=== PATIENT | male | born 1935 | race Two or more races ===

== ENCOUNTER 2023-06-05 23:02 | Inpatient (IN) | payer MEDICARE, OTHER ==
[~2023-06-05] VITALS: Ht 182.9 cm; Wt 75.8 kg
[2023-06-05 23:57] LABS: Basophils # (auto) 0 10 ^3/uL (0-0.2); Basophils % (auto) 0.3 % (0.0-2.0); Eosinophils # (auto) 0.1 10 ^3/uL (0-0.8); Eosinophils % (auto) 0.9 % (0.0-7.0); Hematocrit 35.9 % (41.0-53.0); Hemoglobin 11.7 g/dL (13.5-17.5); Lymphocytes # (auto) 1.2 10 ^3/uL (0.4-5.4); Lymphocytes % (auto) 12.5 % (10.0-50.0); Mean Corpuscular Hgb Conc. 32.6 g/dL (32.0-36.0); Mean Corpuscular Volume 88.9 fL (80.0-100.0); Monocytes # (auto) 0.7 10 ^3/uL (0-1.3); Monocytes % (auto) 6.9 % (0.0-12.0); Neutrophils # (auto) 7.8 10 ^3/uL (1.6-8.6); Neutrophils % (auto) 79.4 % (37.0-80.0); Red Blood Cells 4.04 10^6/uL (4.5-5.90); Red Cell Distribution Width 16.4 % (11.8-14.3); White Blood Cell 9.8 10^3/uL (4.4-10.8)
[2023-06-06] VITALS: PULSE 94; RESP 11; O2SAT 99
[2023-06-06 00:13] LABS: Albumin 3.3 g/dL (3.2-4.8); Alkaline Phosphatase 570 U/L (46-116); Anion Gap 5 (5-15); Aspartate Aminotransferase 15 U/L (13-40); BUN/Creatinine Ratio 15.5 (10.0-20.0); Bilirubin, Total 1.2 mg/dL (0.2-1.0); Blood Urea Nitrogen 11 mg/dL (9-23); Calcium 8.4 mg/dL (8.7-10.4); Carbon Dioxide 30 mmol/L (20-30); Chloride 101 mmol/L (98-107); Glucose 97 mg/dL (74-106); Lipase 35 U/L (12-53); Potassium 3.8 mmol/L (3.5-5.1); Sodium 136 mmol/L (136-145); Total Protein 6.4 g/dL (5.7-8.2)
[2023-06-06 00:27] LABS: Alanine Aminotransferase < 9 U/L (7-40)
[2023-06-06 00:37] LABS: Urine Epithelial Cast None Seen /hpf (<5)
[2023-06-06 01:04] LABS: Urine Bacteria NONE SEEN /hpf (None Seen); Urine Hyaline Cast MANY /lpf (0 - 2); Urine Mucus FEW (None Seen); Urine Sperm PRESENT /hpf (None Seen); Urine WBC 49 /hpf (0 - 3); Urine WBC Clumps PRESENT /hpf (None Seen)
[2023-06-06 01:07] LABS: Urine Clarity CLOUDY (Clear); Urine Color RED (Yellow)
[2023-06-06 01:08] LABS: Urine Blood 3+ /uL (Negative); Urine Protein, UAD 2+ (Negative); Urine Urobilinogen Normal (Negative); Urine pH 6.5 (5.0-8.0)
[2023-06-06 01:13] LABS: Urine Specific Gravity 1.015 (1.001-1.035)
[2023-06-06] MEDS ORDERED: MAALOX PLUS or MAALOX 30 ML PO PRN (01:30)
[2023-06-06] MEDS: PIPERACILLIN-TAZOB 3.375GM 100 ML IV ONE (02:06)
[2023-06-06] MEDS: SODIUM CHLORIDE 0.9% 1,000 ML IV SCH (02:44)
[2023-06-06] MEDS ORDERED: DEXTROSE (50%) 50ML SYRG IV PRN (03:45)
[2023-06-06] MEDS: HYDROcodone-ACET 5/325MG TAB PO PRN (04:27)
[2023-06-06 06:29] LABS: Basophils # (auto) 0 10 ^3/uL (0-0.2); Basophils % (auto) 0.3 % (0.0-2.0); Eosinophils # (auto) 0.1 10 ^3/uL (0-0.8); Eosinophils % (auto) 0.6 % (0.0-7.0); Hematocrit 35.1 % (41.0-53.0); Hemoglobin 11.4 g/dL (13.5-17.5); Lymphocytes # (auto) 1.1 10 ^3/uL (0.4-5.4); Lymphocytes % (auto) 11.8 % (10.0-50.0); Mean Corpuscular Hemoglobin 28.7 pg (28.0-32.0); Mean Corpuscular Hgb Conc. 32.5 g/dL (32.0-36.0); Mean Corpuscular Volume 88.3 fL (80.0-100.0); Monocytes # (auto) 0.5 10 ^3/uL (0-1.3); Monocytes % (auto) 4.9 % (0.0-12.0); Neutrophils # (auto) 7.6 10 ^3/uL (1.6-8.6); Neutrophils % (auto) 82.4 % (37.0-80.0); Red Blood Cells 3.97 10^6/uL (4.5-5.90); Red Cell Distribution Width 16.5 % (11.8-14.3); White Blood Cell 9.3 10^3/uL (4.4-10.8)
[2023-06-06] MEDS: ACCU-CHEK COMFORT CURVE STRIP VI SCH (06:35)
[2023-06-06] MEDS: InsuLIN REG 1unit/0.01ml Soln (100units/ml) SC SCH (06:36)
[2023-06-06 06:41] LABS: Anion Gap 10 (5-15); Carbon Dioxide 26 mmol/L (20-30); Chloride 101 mmol/L (98-107); Potassium 3.7 mmol/L (3.5-5.1); Sodium 137 mmol/L (136-145)
[2023-06-06 06:43] LABS: Calcium 8.4 mg/dL (8.7-10.4)
[2023-06-06 06:47] LABS: BUN/Creatinine Ratio 16.9 (10.0-20.0); Blood Urea Nitrogen 11 mg/dL (9-23); Glucose 101 mg/dL (74-106)
[2023-06-06 10:33] VITALS: PULSE 86; RESP 14; O2SAT 97
[2023-06-06] MEDS: cefTRIAXone 1GM/50ML D5W 50 ML IV ONE (14:38)
[2023-06-06 17:56] VITALS: BP 96/51; PULSE 96; RESP 14; O2SAT 92
[2023-06-06 20:00] VITALS: PULSE 97; RESP 16; O2SAT 100
[2023-06-06] MEDS: ACETAMINOPHEN 325 MG TAB PO PRN (21:46)
[2023-06-06 22:00] VITALS: BP 100/60; PULSE 97; RESP 16; TEMP 97.5; O2SAT 100
[2023-06-07] VITALS (7 sets, daily range): BP systolic 93–114; BP diastolic 49–63; PULSE 86–110; RESP 14–18; TEMP 96.6–97.6; O2SAT 93–100
[2023-06-07] MEDS: cefTRIAXone 1GM/50ML D5W 50 ML IV SCH (10:49)
[2023-06-08] VITALS (7 sets, daily range): BP systolic 100–107; BP diastolic 53–70; PULSE 84–101; RESP 14–19; TEMP 97.7–98.7; O2SAT 95–100
[2023-06-08] MEDS: DOCUSATE SOD 100 MG CAP PO PRN (09:22)
[2023-06-08] MEDS: IOHEXOL 300 MG/ML 100ML BOTTLE IJ ONE (10:19)
[2023-06-08] MEDS ORDERED: CLINIMIX PER PHARMACY 0 ML IV SCH (13:45)
[2023-06-08 16:48] LABS: Alkaline Phosphatase 501 U/L (46-116); Anion Gap 7 (5-15); Aspartate Aminotransferase 20 U/L (13-40); Blood Urea Nitrogen 12 mg/dL (9-23); Calcium 8.4 mg/dL (8.5-10.1); Carbon Dioxide 27 mmol/L (20-30); Chloride 104 mmol/L (98-107); Glucose 111 mg/dL (74-106); Sodium 138 mmol/L (136-145)
[2023-06-08 16:49] LABS: Bilirubin, Total 0.8 mg/dL (0.2-1.0); Total Protein 5.8 g/dL (5.7-8.2)
[2023-06-08 16:52] LABS: Magnesium 1.9 mg/dL (1.6-2.6)
[2023-06-08 16:53] LABS: Alanine Aminotransferase < 9 U/L (7-40)
[2023-06-08 16:54] LABS: Phosphorus 2.4 mg/dL (2.4-5.1)
[2023-06-08] MEDS: ACCU-CHEK COMFORT CURVE STRIP VI SCH (17:21)
[2023-06-08] MEDS: InsuLIN REG 1unit/0.01ml Soln (100units/ml) SC SCH (17:21)
[2023-06-08] MEDS ORDERED: DEXTROSE (50%) 50ML SYRG IV SCH (18:00)
[2023-06-08] MEDS: AMINO ACID INFUSION IN D10W 1,000 ML IV SCH (20:32)
[2023-06-09] VITALS (7 sets, daily range): BP systolic 94–108; BP diastolic 50–59; PULSE 80–98; RESP 17–19; TEMP 97.9–98.1; O2SAT 99–100
[2023-06-09 07:14] LABS: Albumin 2.9 g/dL (3.2-4.8); Alkaline Phosphatase 466 U/L (46-116); Anion Gap 7 (5-15); Aspartate Aminotransferase 16 U/L (13-40); BUN/Creatinine Ratio 20.8 (10.0-20.0); Blood Urea Nitrogen 11 mg/dL (9-23); Calcium 8.2 mg/dL (8.7-10.4); Carbon Dioxide 27 mmol/L (20-30); Chloride 104 mmol/L (98-107); Glucose 113 mg/dL (74-106); Magnesium 1.8 mg/dL (1.6-2.6); Potassium 3.6 mmol/L (3.5-5.1); Sodium 138 mmol/L (136-145)
[2023-06-09 07:15] LABS: Bilirubin, Total 0.8 mg/dL (0.2-1.0); Phosphorus 2.2 mg/dL (2.4-5.1); Total Protein 5.5 g/dL (5.7-8.2)
[2023-06-09 07:19] LABS: Alanine Aminotransferase < 9 U/L (7-40)
[2023-06-09 08:06] LABS: PSA Free 15.7 ng/mL; Prostate Specific Antigen 83.1 ng/mL (0.0-4.0)
[2023-06-09] MEDS: POTASSIUM PHOSPHATE 22 MEQ in SODIUM CHL 0.9% 100 ML IV ONE (13:20)
[2023-06-09] MEDS: LORazepam 2MG/ML-1ML VIAL IV ONE (14:32)
[2023-06-09] MEDS: MUPIROCIN 2% OINT 15gm or 22gm FOR MRSA NARES TOP SCH (22:22)
[2023-06-10] VITALS (7 sets, daily range): BP systolic 104–118; BP diastolic 57–73; PULSE 82–110; RESP 16–21; TEMP 97.7–98.6; O2SAT 90–99
[2023-06-10] MEDS: MORPHINE SULFATE INJ 2 MG/ml SYRG IV PRN (04:52)
[2023-06-10 06:08] LABS: Potassium 3.6 mmol/L (3.5-5.1)
[2023-06-10 06:09] LABS: Calcium 8.3 mg/dL (8.7-10.4)
[2023-06-10 06:15] LABS: Albumin 2.9 g/dL (3.2-4.8); Magnesium 1.6 mg/dL (1.6-2.6)
[2023-06-10 06:17] LABS: Phosphorus 2.1 mg/dL (2.4-5.1)
[2023-06-10] MEDS: ONDANSETRON HCL 4 MG/2 ML VIAL IV PRN (08:56)
[2023-06-10] MEDS: MAGNESIUM SULFATE 1GM/100ML 100 ML IV ONE (10:30)
[2023-06-10] MEDS ORDERED: POTASSIUM PHOSPHATE 22 MEQ in SODIUM CHL 0.9% 100 ML IV ONE (12:00)
[2023-06-10] MEDS: MAGNESIUM SULFATE 1GM/100ML 100 ML IV SCH (12:20)
[2023-06-10] MEDS: POTASSIUM CHL 20 Meq TABLET PO ONE (12:20)
[2023-06-10] MEDS: LORazepam 2MG/ML-1ML VIAL IV ONE (13:22)
[2023-06-10] MEDS: POTASSIUM PHOSPHATE 22 MEQ in SODIUM CHL 0.9% 100 ML IV ONE (15:00)
[2023-06-10] MEDS: ATORVASTATIN 20 MG TAB PO SCH (21:45)
[2023-06-10] MEDS: METOPROLOL TARTRATE 25 MG TAB PO SCH (21:46)
[2023-06-11] VITALS (8 sets, daily range): BP systolic 104–132; BP diastolic 62–76; PULSE 89–112; RESP 16–19; TEMP 96.6–98.3; O2SAT 91–97
[2023-06-11 07:02] LABS: Potassium 4.1 mmol/L (3.5-5.1)
[2023-06-11 07:03] LABS: Calcium 8.8 mg/dL (8.5-10.1)
[2023-06-11 07:08] LABS: BUN/Creatinine Ratio 20.8 (10.0-20.0)
[2023-06-11 07:09] LABS: Albumin 3.1 g/dL (3.2-4.8)
[2023-06-11 07:10] LABS: Phosphorus 2.2 mg/dL (2.4-5.1)
[2023-06-11 07:28] LABS: Magnesium 1.8 mg/dL (1.6-2.6)
[2023-06-11] MEDS: EMPAGLIFLOZIN 10 MG TAB PO SCH (09:53)
[2023-06-11] MEDS ORDERED: LORazepam 2MG/ML-1ML VIAL IV PRN (12:30)
[2023-06-11] MEDS: DIGOXIN (250MCG/ML) 2 ML AMPULE IV ONE (13:09)
[2023-06-11] MEDS: MAGNESIUM SULFATE 1GM/100ML 100 ML IV ONE (14:57)
[2023-06-11] MEDS: SODIUM PHOSPHATES 40 MEQ in D5W 5% 250 ML IV ONE (18:31)
[2023-06-11] MEDS: SACUBITRIL-VALSARTAN 24mg/26mg TAB PO SCH (20:33)
[2023-06-11] MEDS: APIXABAN 2.5 MG TAB PO SCH (20:34)
[2023-06-12 05:00] VITALS: BP 117/68; PULSE 88; RESP 18; TEMP 98.7; O2SAT 97
[2023-06-12 05:54] LABS: Alkaline Phosphatase 978 U/L (46-116); Anion Gap 7 (5-15); Calcium 7.7 mg/dL (8.7-10.4); Carbon Dioxide 26 mmol/L (20-30); Chloride 103 mmol/L (98-107); Glucose 117 mg/dL (74-106); Potassium 3.7 mmol/L (3.5-5.1); Sodium 136 mmol/L (136-145)
[2023-06-12 05:56] LABS: Albumin 2.9 g/dL (3.2-4.8); Aspartate Aminotransferase 101 U/L (13-40); Phosphorus 2.7 mg/dL (2.4-5.1)
[2023-06-12 06:11] LABS: Blood Urea Nitrogen 10 mg/dL (9-23); Magnesium 1.7 mg/dL (1.6-2.6)
[2023-06-12 06:13] LABS: Bilirubin, Total 1.2 mg/dL (0.2-1.0); Total Protein 5.9 g/dL (5.7-8.2)
[2023-06-12 06:33] LABS: Alanine Aminotransferase < 9 U/L (7-40)
[2023-06-12 08:00] VITALS: O2SAT 93
[2023-06-12 08:35] VITALS: BP 94/57; PULSE 74; RESP 19; TEMP 98.6; O2SAT 92
[2023-06-12] MEDS: CLOPIDOGREL BISULFATE 75 MG TAB PO SCH (10:10)
[2023-06-12] MEDS: SPIRONOLACTONE 25 MG TAB PO SCH (10:11)
[2023-06-12] MEDS: DIGOXIN 0.125 MG TAB PO SCH (10:11)
[2023-06-12 11:30] LABS: BUN/Creatinine Ratio 22.2 (10.0-20.0)
[2023-06-12 12:10] VITALS: PULSE 99
[2023-06-12] MEDS: MAGNESIUM SULFATE 1GM/100ML 100 ML IV ONE (12:24)
[2023-06-12] MEDS: CALCIUM ACETATE 667 MG CAP PO SCH (12:26)
[2023-06-12 12:39] VITALS: BP 114/49; PULSE 89; RESP 18; TEMP 98.6; O2SAT 97
[2023-06-12 16:32] VITALS: BP 110/55; PULSE 82; RESP 17; TEMP 98.4; O2SAT 93
== END 2023-06-12 16:30 | DRG 722 ==
LOC: EDBD 23:02 → EDUNIT# 23:02 → ER 23:02 → OVERFLOW 06-06 01:29 → EAST 06-06 17:27 → TELE-EAST 06-09 18:34
PROVIDERS: ADMIT Hospitalist; ATTEND Family Medicine
DX: C61 Malignant neoplasm of prostate (principal); I50.23 Acute on chronic systolic (congestive) heart failure; J15.69 Pneumonia due to other Gram-negative bacteria; J15.9 Unspecified bacterial pneumonia; C79.51 Secondary malignant neoplasm of bone; S37.30XA Unspecified injury of urethra, initial encounter; N13.30 Unspecified hydronephrosis; I48.19 Other persistent atrial fibrillation; J98.11 Atelectasis; E44.1 Mild protein-calorie malnutrition; N39.0 Urinary tract infection, site not specified; E03.9 Hypothyroidism, unspecified; E78.5 Hyperlipidemia, unspecified; N28.1 Cyst of kidney, acquired; N32.89 Other specified disorders of bladder; N36.8 Other specified disorders of urethra; I27.20 Pulmonary hypertension, unspecified; I25.10 Atherosclerotic heart disease of native coronary artery without angina pectoris; I25.5 Ischemic cardiomyopathy; M10.9 Gout, unspecified; R31.9 Hematuria, unspecified; I71.20 Thoracic aortic aneurysm, without rupture, unspecified; I11.0 Hypertensive heart disease with heart failure; Z85.46 Personal history of malignant neoplasm of prostate; Z95.810 Presence of automatic (implantable) cardiac defibrillator; Z98.61 Coronary angioplasty status; X58.XXXA Exposure to other specified factors, initial encounter; Y93.9 Activity, unspecified; Y92.89 Other specified places as the place of occurrence of the external cause; Y99.8 Other external cause status
CPT/HCPCS: 36415; 71250; 74177; 76775; 78306; 80048; 80053; 80069; 81001; 82962; 83605; 83690; 83735; 83880; 84100; 84154; 84484; 85025; 87040; 87081; 87086; 93306; 96365; 97110; 97163; 97530; G0378; J1815; J2405; J2543; J7060